=== PATIENT | male | born 1995 | race Caucasian/White ===

== ENCOUNTER 2018-03-20 15:11 | Emergency (ER) | payer OTHER ==
[~2018-03-20] VITALS: Ht 180.3 cm; Wt 72.6 kg
== END 2018-03-20 16:02 | disposition home or self-care (01) ==
LOC: ER 15:11
DX: S67.191A Crushing injury of left index finger, initial encounter (principal); Z91.011 Allergy to milk products; F17.200 Nicotine dependence, unspecified, uncomplicated; W22.8XXA Striking against or struck by other objects, initial encounter; Y99.0 Civilian activity done for income or pay
CPT/HCPCS: 73140; 99282-25